=== PATIENT | female | born 1970 | race African-American/Black ===

== ENCOUNTER 2017-03-21 06:20 | Observation (INO) ==
[2017-03-21] MEDS ORDERED: ASPIRIN 325 MG TABLET PO STA (07:10)
[2017-03-21] MEDS ORDERED: ASPIRIN 325 MG TABLET ONE (07:30)
[2017-03-21 08:02] LABS: Apearance,Urine Slightly Hazy (Clear); Bilirubin,Urine Negative (Negative); Blood, Urine Negative (Negative); Glucose,Urine (UA) Negative (Negative); Ketones,Urine Negative (Negative); Mucus,Urine Occasional /LPF (Occasional); Nitrite,Urine Negative (Negative); Protein,Urine Negative; RBC,Urine 2 /HPF (0-4); Squamous Epithelial Cell,Urine Occasional /HPF (0-10); Urine Color Yellow (Yellow); Urine Specific Gravity 1.016 (1.001-1.035); Urine Urobilinogen < 2.0 EU/DL (0.2-1.0); WBC,Urine 5 /HPF (0-6)
[2017-03-21 08:03] LABS: INR 0.9; PT Patient Result 9.9 SECS
[2017-03-21 08:05] LABS: Barbiturates Screen,Urine Negative (Negative); Benzodiazepines Screen,Urine Negative (Negative); Cannabinoid Screen,Urine Negative (Negative); Opiate Screen,Urine Negative (Negative); Phencyclidine Screen,Urine Negative (Negative)
[2017-03-21 08:27] LABS: Albumin 3.5 G/DL (3.4-5.0); Bilirubin,Total 0.6 MG/DL (0.2-1.0); Calcium 8.1 MG/DL (8.5-10.1); Osmolality,Calculated 278.3 MOS/KG (273-304); Total Protein 7.5 G/DL (6.4-8.3)
[2017-03-21 08:36] LABS: Basophils % 0.2 % (0.0-0.8); Eosinophils # 0.1 10*3/uL (0.0-0.87); Eosinophils % 1.4 % (0.00-10.9); Hematocrit 25.7 VOL% (35.7-47.0); Immature Granulocytes % 0.6 %; Immature Granulocytes Absolute 0.04 #; Lymphocytes # 1.4 10*3/uL (1.4-4.0); Lymphocytes % 21.5 % (21.3-54.2); Mean Corpuscular HGB Conc 27.2 GM/DL (32-36); Mean Corpuscular Hemoglobin 16 PG (27-34); Mean Corpuscular Volume 59.5 FL (87-102); Monocytes # 0.3 10*3/uL (0.11-0.8); Monocytes % 5.1 % (1.7-12.7); Neutrophils # 4.6 10*3/uL (1.4-7.4); Neutrophils % 71.2 % (38.7-73.9); Platelet Count 245 T/CUMM (130-400); Red Blood Count 4.32 MC/CUMM (3.8-5.5); Red Cell Distribution Width 23.3 % (9.3-17.3); White Blood Count 6.4 T/CUMM (4-12)
[2017-03-21 09:06] LABS: Giant Platelets Few; Hypochromasia 1+; Platelet Estimate Adequate
[2017-03-21 09:07] LABS: Macrocytosis Slight; Ovalocytes Slight
[2017-03-21 09:52] LABS: % Iron Saturation 3.7 % (18-50); Ferritin 1.6 ng/ml (8-252)
[2017-03-21 10:24] LABS: Folate 5.4 NG/ML (5.4-24.0)
[2017-03-21] MEDS ORDERED: SODIUM CHLORIDE 0.9% 1,000 ML IV PRN (10:52)
[2017-03-21] MEDS ORDERED: ONDANSETRON 4 MG/2 ML VIAL IV PRN (11:42)
[2017-03-21] MEDS ORDERED: MORPHINE 2 MG/1 ML SYRINGE IV PRN (11:42)
[2017-03-21] MEDS ORDERED: diphenhydrAMINE CAP 25 MG CAPSULE PO PRN (11:42)
[2017-03-21] MEDS ORDERED: ACETAMINOPHEN 325 MG TABLET PO PRN (11:42)
[2017-03-21] MEDS ORDERED: DOCUSATE SODIUM 100 MG CAPSULE PO PRN (11:42)
[2017-03-21] MEDS ORDERED: guaiFENesin/DM ER 600-30 MG TABLET PO PRN (11:42)
[2017-03-21] MEDS ORDERED: cefTRIAXone 1,000 MG VIAL ONE (12:14)
[2017-03-21] MEDS: cefTRIAXone 1,000 MG in SYRINGE 1 EACH IV SCH (12:15)
[2017-03-21 13:53] LABS: Troponin I Only < 0.015 NG/ML (0.00-0.045)
[2017-03-21] MEDS: PANTOPRAZOLE 40 MG TABLET PO SCH (15:09)
[2017-03-21 20:36] LABS: Troponin I Only < 0.015 NG/ML (0.00-0.045)
[2017-03-21] MEDS ORDERED: ENOXAPARIN 40 MG/0.4 ML SYRINGE SUBCUT SCH (21:00)
[2017-03-22 05:32] LABS: Basophils % 0.5 % (0.0-0.8); Eosinophils # 0.1 10*3/uL (0.0-0.87); Eosinophils % 2.1 % (0.00-10.9); Hematocrit 30.4 VOL% (35.7-47.0); Immature Granulocytes % 0.2 %; Immature Granulocytes Absolute 0.01 #; Lymphocytes # 1.9 10*3/uL (1.4-4.0); Lymphocytes % 29.9 % (21.3-54.2); Mean Corpuscular HGB Conc 29.3 GM/DL (32-36); Mean Corpuscular Hemoglobin 19 PG (27-34); Monocytes # 0.4 10*3/uL (0.11-0.8); Monocytes % 6.3 % (1.7-12.7); Neutrophils # 3.8 10*3/uL (1.4-7.4); Platelet Count 216 T/CUMM (130-400); Red Blood Count 4.68 MC/CUMM (3.8-5.5); Red Cell Distribution Width 28.9 % (9.3-17.3); White Blood Count 6.2 T/CUMM (4-12)
[2017-03-22 05:53] LABS: Hemoglobin 8.9 GM/DL (12.0-16.0)
[2017-03-22 06:14] LABS: Bilirubin,Total 0.7 MG/DL (0.2-1.0); Calcium 8.3 MG/DL (8.5-10.1); Osmolality,Calculated 276.4 MOS/KG (273-304); Potassium 4.4 MMOL/L (3.5-5.1); Total Protein 6.6 G/DL (6.4-8.3)
[2017-03-22 06:21] LABS: Hypochromasia 1+
[2017-03-22 06:22] LABS: Microcytosis 1+; Ovalocytes Slight; Spherocytes Few; Target Cells Few
[2017-03-22 06:23] LABS: Platelet Estimate Normal
[2017-03-22 08:12] LABS: Hemoglobin A1 (Alkaline) 97.8 % (96.5-98.5); Hemoglobin A2 (Alkaline) 2.2 % (1.5-3.5)
[2017-03-22] MEDS: PANTOPRAZOLE 40 MG TABLET PO SCH (08:33)
[2017-03-22] MEDS: cefTRIAXone 1,000 MG in SYRINGE 1 EACH IV SCH (08:33)
[2017-03-22 12:26] VITALS: BP 116/69
[2017-03-22] MEDS ORDERED: IRON (CARBONYL)/VIT C/B12/FA TABLET PO SCH (13:00)
[2017-03-22] MEDS ORDERED: INFLUENZA VIRUS VACCINE 0.5 ML SYRINGE IM ONE (13:33)
[2017-03-22] MEDS ORDERED: NITROFURANTOIN MACRO/MONO 100 MG CAPSULE PO SCH (21:00)
== END 2017-03-22 14:39 | disposition home or self-care (01) | DRG 812 ==
LOC: N.ED 06:20 → N.EDINP 10:50 → INTOOBSV 10:50 → SUATTDRO 10:50 → N.2E 12:30
PROVIDERS: ADMIT Internal Medicine; ATTEND Pediatrics